=== PATIENT | female | born 1990 | race American Indian/Alaskan Native ===

== ENCOUNTER 2016-06-02 11:44 | Outpatient (CLI) | payer MEDICAID ==
[2016-06-02 14:57] VITALS: BP 121/67
--- NOTE | 2016-06-03 08:05 | Ultrasound Report ---
ULTRASOUND OB LIMITED History: well being Technique: Transabdominal ultrasound with Doppler interrogation. Gestation: Single Position: Breech Amniotic Fluid: Normal STACY = 18.6 cm Heart Rate: 15 BPM
== END 2016-06-02 17:15 | disposition home or self-care (01) ==
LOC: LAB 11:44 → TRG 13:59 → LAB 17:15
PROVIDERS: ATTEND Obstetrics & Gynecology
DX: O36.0120 Maternal care for anti-D [Rh] antibodies, second trimester, not applicable or unspecified (principal); O32.1XX0 Maternal care for breech presentation, not applicable or unspecified; Z91.81 History of falling; Z3A.26 26 weeks gestation of pregnancy
CPT/HCPCS: 59025; 76815; 85460; 86850; 86900; 86901; 96372; J2790

== ENCOUNTER 2016-06-12 22:18 | Outpatient (CLI) | payer MEDICAID ==
[2016-06-12] MEDS ORDERED: LACTATED RINGERS 500 ML IV ONE (22:26)
[2016-06-12 22:34] VITALS: BP 124/78
== END 2016-06-12 23:08 | disposition home or self-care (01) ==
LOC: TRG 22:18 → LD 22:19 → TRG 23:08
PROVIDERS: ATTEND Obstetrics & Gynecology
DX: O46.92 Antepartum hemorrhage, unspecified, second trimester (principal); Z3A.27 27 weeks gestation of pregnancy
CPT/HCPCS: 59025

== ENCOUNTER 2016-06-23 22:47 | Outpatient (CLI) | payer MEDICAID ==
[2016-06-24 00:07] VITALS: BP 121/77
== END 2016-06-24 00:36 | disposition home or self-care (01) ==
LOC: TRG 22:47
PROVIDERS: ATTEND Obstetrics & Gynecology
DX: O47.03 False labor before 37 completed weeks of gestation, third trimester (principal); Z3A.29 29 weeks gestation of pregnancy
CPT/HCPCS: 59025

== ENCOUNTER 2016-08-27 05:31 | Inpatient (IN) | payer MEDICAID ==
[2016-08-27] MEDS ORDERED: LACTATED RINGERS 1,000 ML ONE ×2 (05:52)
[2016-08-27] MEDS ORDERED: LACTATED RINGERS 1,000 ML IV SCH (07:00)
[2016-08-27 07:13] LABS: Basophils % (Auto) 0.3 % (0.0-1.8); Eosinophils % (Auto) 1.1 % (0.0-4.3); Hematocrit 35.2 % (30.3-42.9); Hemoglobin 11.8 gm/dl (10.1-14.3); Mean Corpuscular HGB Conc 34 % (30-34); Mean Corpuscular Hemoglobin 31 pg (28-32); Mean Corpuscular Volume 92 fl (79-97); Platelet Count 234 K/mm3 (140-440); Red Blood Count 3.83 M/mm3 (3.65-5.03); Red Cell Distribution Width 15.3 % (13.2-15.2); White Blood Count 9.2 K/mm3 (4.5-11.0)
[2016-08-27] MEDS ORDERED: REGLAN IV ONE (07:49)
[2016-08-27] MEDS ORDERED: PEPCID IV ONE (07:49)
[2016-08-27] MEDS ORDERED: BICITRA PO ONE (07:49)
[2016-08-27] MEDS ORDERED: PITOCin/NS 20 UNIT/1000ML DRIP 20 UNITS/1,000 ML BAG IV SCH ×2 (08:00→11:00)
[2016-08-27] MEDS ORDERED: ANCEF/STERILE WATER 2 GM/20 ML 2 GM/20 ML SYRINGE IV NR (08:00)
--- NOTE | 2016-08-27 08:59 | History and Physical Report ---
History of Present Illness Date of examination: 08/27/16 Date of admission: 08/27/16 08:19 Chief complaint: Ruptured Membranes History of present illness: 26-year-old at 38+2 wks presents with ruptured membranes, she is a [employer] patient and I currently have no records. course complicated by gestational diabetes on medication. 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 denies: chlamydia, fibroids, gonorrhea, hepatitis B, hepatitis C, HIV, syphilis, trichomonas Social history: single, full code. denies: smoking, alcohol abuse, prescription drug abuse, IV drug use - Obstetrical History Expected Date of Delivery: 09/08/16 Actual Gestation: 38 Week(s) 3 Day(s) : 5 Para: 1 Medications and Allergies Allergies Allergy/AdvReac Type Severity Reaction Status Date / Time No Known Allergies Allergy Verified 04/20/16 09:59 Home Medications Medication Instructions Recorded Confirmed Last Taken Type Vit-Fe Fumar-FA [ 1 tab PO QDAY 04/20/16 08/27/16 08/26/16 History Vitamin] Ibuprofen [Motrin 600 MG tab] 600 mg PO Q8H PRN #30 tablet 08/27/16 Unknown Rx Multivitamin with Iron 1 each PO DAILY #30 tablet 08/27/16 Unknown Rx [Multivitamins with Iron] oxyCODONE /ACETAMINOPHEN [Percocet 1 tab PO Q6HR PRN #30 tablet 08/27/16 Unknown Rx 5/325] Active Meds: Active Medications Lactated Ringer's (Lactated Ringers) 1,000 mls @ 125 mls/hr IV DIRECT MOIZ Cefazolin Sodium (Ancef/Sterile Water 2 Gm/20 Ml) 2 gm in 20 mls @ 80 mls/hr IV PREOP NR PRN Reason: Protocol Stop: 08/27/16 23:59 Oxytocin/Sodium Chloride (Pitocin/Ns 20 Unit/1000ml Drip) 20 units in 1,000 mls @ 0 mls/hr IV TITR MOIZ PRN Reason: As Directed Review of Systems Constitutional: no weight gain, no fever, no chills, no fatigue, no weakness, no chronic headaches Cardiovascular: no chest pain, no orthopnea, no palpitations, no edema, no syncope, no lightheadedness, no shortness of breath, no dyspnea on exertion, no high blood pressure Respiratory: no cough, no cough with sputum, no shortness of breath, no dyspnea on exertion Gastrointestinal: abdominal pain (painful contractions), no nausea, no vomiting Genitourinary: leakage of fluid, contractions, no vaginal bleeding - Vital Signs Vital signs: Vital Signs Temp Pulse Resp BP 98.3 F 77 18 137/86 08/27/16 05:37 08/27/16 05:37 08/27/16 05:37 08/27/16 05:37 Temp Pulse Resp BP Pulse Ox 98.5 F 79 18 137/86 100 08/27/16 07:03 08/27/16 07:18 08/27/16 07:03 08/27/16 07:03 08/27/16 07:18 - Physical Exam Cardiovascular: Regular rate, Normal S1, Normal S2 Lungs: Positive: Clear to auscultation, Normal air movement Abdomen: Positive: normal appearance, soft. Negative: distention, tenderness, guarding, rigidity Uterus: Positive: enlarged (EFW ~ 3600). Negative: tender Adnexa: both: normal Extremities: Positive: normal - Obstetrical FHR: category 1 Results Result Diagrams: 08/27/16 22:47 08/27/16 06:15 Abnormal lab results 08/27/16 Range/Units 06:15 RDW 15.3 H (13.2-15.2) % [place] % (Auto) 13.8 H (0.0-7.3) % [place] # 1.3 H (0.0-0.8) K/mm3 All other labs normal. Assessment and Plan A: 26-year-old at 38+2 with ruptured membranes -Prior C-S # 1 -GDMA 2 (Has not taken her meds in 2 days but her POC is ~70) P: -Will proceed with a second repeat -Patient has been consented - Patient Problems (1) 38 weeks gestation of Current Visit: Yes Status: Acute (2) Previous delivery, antepartum Current Visit: Yes Status: Acute (3) Gestational diabetes Current Visit: Yes Status: Acute Qualifiers: Gestational diabetes mellitus control: G Trimester: T
[2016-08-27] MEDS ORDERED: DILAUDID IV PRN (09:01)
[2016-08-27] MEDS ORDERED: PHENERGAN PR PRN (09:01)
[2016-08-27] MEDS ORDERED: BENADRYL IV PRN (09:01)
[2016-08-27] MEDS ORDERED: NARCAN 0.4 MG/1 ML IV PRN ×2 (09:01→10:55)
[2016-08-27] MEDS ORDERED: PHENERGAN PO PRN (09:01)
[2016-08-27] MEDS ORDERED: ZOFRAN IV PRN (09:01)
--- NOTE | 2016-08-27 09:01 | Anesthesia Day of Surgery ---
Anesthesia Day of Surgery - Day of Surgery Patient Examined: Yes Patient H&P Reviewed: Yes Patient is NPO: Yes
--- NOTE | 2016-08-27 09:01 | Anesthesia Consultation ---
Anesthesia Consult and Med Hx Date of service: 08/27/16 - Airway Anesthetic Teeth Evaluation: Good ROM Head & Neck: Adequate Mental/Hyoid Distance: Adequate Mallampati Class: Class II Intubation Access Assessment: Probably Good - Pre-Operative Health Status ASA Pre-Surgery Classification: ASA2 Proposed Anesthetic Plan: Epidural, Spinal - Pulmonary Hx Asthma: No COPD: No Hx Pneumonia: No - Cardiovascular System Hx Hypertension: No - Central Nervous System Hx Seizures: No Hx Psychiatric Problems: No - Endocrine Hx Renal Disease: No Hx End Stage Renal Disease: No Hx Hypothyroidism: No Hx Hyperthyroidism: No - Hematic Hx Anemia: No Hx Sickle Cell Disease: No - Other Systems Hx Alcohol Use: No
[2016-08-27] MEDS ORDERED: TORADOL IV PRN (09:02)
[2016-08-27] MEDS ORDERED: MORPHINE ONE (09:27)
[2016-08-27] MEDS ORDERED: SODIUM CHLORIDE FLUSH SYRINGE 10 ML IV NR ×2 (10:00→11:00)
[2016-08-27] MEDS ORDERED: XYLOCAINE MPF 2% ONE (10:13)
[2016-08-27] MEDS ORDERED: ZOFRAN ONE (10:24)
[2016-08-27] MEDS ORDERED: NEO SYNEPHRINE/NS Syringe(OR USE) IV ONE (10:30)
[2016-08-27] MEDS ORDERED: NACL 0.9% IR ONE (10:33)
[2016-08-27] MEDS ORDERED: WATER FOR IRRIG STERILE IR ONE (10:33)
--- NOTE | 2016-08-27 10:52 | Operative Report ---
Operative Report Operative Report: DATE: 08/27/2016 PREOPERATIVE DIAGNOSIS: 26-year-old at 38+2, spontaneous rupture of membranes, prior , GDMA2 POSTOP DIAGNOSIS: As above NAME OF PROCEDURE: Repeat low transverse section SURGEON: ZEINAB WHITE MD TRANSMISSION ENGINEER: [] ANESTHESIA: Combined spinal epidural EBL: 700 mL PATHOLOGY SPECIMEN: None URINE OUTPUT: 50 mL FINDINGS: Male infant in cephalic presentation, time of was 10:16 AM, Apgars were 8 and 9, 's weight was 7 [place] [address] grams, minimal adhesions, normal uterus tubes and ovaries bilaterally DESCRIPTION OF PROCEDURE: She was taken to the operating room where she was prepped and draped in a sterile fashion, she was placed in the dorsal supine position. Pfannenstiel incision was performed through her prior incisional scar which was carried through to underlying rectus fascia which was on the midline. The fascial incision was extended laterally with use of Mcneil scissors , the anterior leaf was then grasped with Kochers forceps elevated dissected sharply and bluntly off the underlying rectus in a similar fashion inferior leaf was grasped elevated dissected sharply and bluntly off the underlying rectus. The rectus was in the midline, good visualization of bladder was noted. A bladder blade was placed in the patient's pelvic cavity; bladder flap could not be created. A hysterotomy incision was then performed in the lower segment with clear amniotic fluid noted, hysterotomy incision was extended laterally with the use of fingers manually. in cephalic presentation was delivered in the usual manner; cord was clamped and cut infant was handed over to waiting nursery staff. The placenta was then delivered manually intact, the uterus was exteriorized cleared of all clots and debris. Hysterotomy incision was then closed in a running locked fashion with 0 Vicryl on a CTX; using the same suture was imbricate the initial layer. Interrupted [id number] stitches were used to obtain hemostasis. Uterus was then returned to the patient's pelvic cavity; peritoneal edges were grasped with hemostats and Dionne's elevated copiously irrigation was used to clear the gutters of all clots and debris. Tercel hemostatic agent was then applied to the hysterotomy incision as a means to prevent future bleeding. The peritoneal layer was then closed in a running fashion with 3-0 Vicryl and the rectus was reapproximated with a single [id number] stitch. The fascia was closed in a running fashion with 0 Vicryl and tied in the opposite side. The subcutaneous layer was irrigated and then reapproximated with interrupted figure -of-eight stitches. The skin was closed in a subcuticular manner with 4-0 Vicryl. She tolerated the procedure well lap and instrument counts were correct 2 she did receive 2 g of Ancef prior to incision she is transferred to PACU in stable condition thank you.
[2016-08-27] MEDS ORDERED: SENOKOT PO PRN (10:55)
[2016-08-27] MEDS ORDERED: ANUCORT-HC PR PRN (10:55)
[2016-08-27] MEDS ORDERED: TYLENOL PO PRN (10:55)
[2016-08-27] MEDS ORDERED: MILK OF MAGNESIA PO PRN (10:55)
[2016-08-27] MEDS ORDERED: MYLICON PO PRN (10:55)
[2016-08-27] MEDS ORDERED: TUCKS PAD TP PRN (10:55)
[2016-08-27] MEDS ORDERED: LANSINOH TP PRN (10:55)
[2016-08-27] MEDS ORDERED: D5LR 1,000 ML IV SCH (11:00)
[2016-08-27] MEDS: BENADRYL PO PRN ×2 (17:42→23:39)
[2016-08-27] MEDS: PERCOCET 5/325 PO PRN (22:06)
[2016-08-27 23:13] LABS: Hemoglobin 10.7 gm/dl (10.1-14.3)
[2016-08-28] MEDS: MOTRIN PO PRN ×4 (03:02→22:51)
[2016-08-28] MEDS: PERCOCET 5/325 PO PRN ×4 (05:17→22:51)
[2016-08-28] MEDS ORDERED: BOOSTRIX IM ONE (06:00)
--- NOTE | 2016-08-28 09:59 | Progress Note ---
Subjective Date of service: 08/28/16 Interval history: 1st POD after Patient is in the bed, comfortable. Pain is well under control. Some pruritus is controlled with Benadryl. Ambulated well. No residual neurological deficit. No anesthesia complications Objective - Constitutional Vitals: Vital Signs - 12hr 08/27/16 08/28/16 08/28/16 22:30 00:00 04:00 Temperature 98.7 F 98.0 F 98.8 F Pulse Rate [ 82 93 H Left Brachial] Pulse Rate [ 71 Right Brachial] Pulse Rate [ Right From Monitor] Respiratory 18 20 20 Rate Blood Pressure 132/72 138/74 [Left Arm] Blood Pressure 133/65 [Right Arm] 08/28/16 08:10 Temperature 98.5 F Pulse Rate [ 98 H Left Brachial] Pulse Rate [ 90 Right Brachial] Pulse Rate [ 98 H Right From Monitor] Respiratory 17 Rate Blood Pressure 136/78 [Left Arm] Blood Pressure 137/77 [Right Arm] - Labs CBC & Chem 7: 08/27/16 22:47 08/27/16 06:15 Labs: Abnormal lab results 08/28/16 Range/Units 06:36 POC Glucose 137 H (70-105)
[2016-08-28] MEDS: PRENATAL VITAMIN PO SCH (11:08)
[2016-08-28] MEDS: FEOSOL PO SCH (11:08)
--- NOTE | 2016-08-28 14:53 | Progress Note ---
Assessment and Plan A: POD1 VSS Incision dressing dry and intact Ambulating well P: Continue post op care Encouraged continued ambulation Subjective - Subjective Date of service: 08/28/16 Principal diagnosis: POD1 Interval history: 26 yo G5 s/p repeat LTCS on 08/26 @ 1016. Hx of GDM in this . Patient reports: appetite normal, voiding normally, flatus, ambulating normally [place]: doing well Objective - Vital Signs Latest vital signs: Vital Signs Temp Pulse Pulse Pulse Resp BP BP 08/28/16 08:10 98.5 F 98 H 90 98 H 17 136/78 137/77 08/28/16 04:00 98.8 F 93 H 20 138/74 08/28/16 00:00 98.0 F 82 20 132/72 08/27/16 22:30 98.7 F 71 18 133/65 08/27/16 16:20 98.2 F 85 20 129/67 Intake and Output 08/27/16 08/28/16 08/28/16 22:59 06:59 14:59 Intake Total 480 1000 Output Total 829 080 5085 Balance -370 -900 -700 Intake: Oral 480 1000 Output: Urine 149 006 7065 Indwelling Catheter 850 Void 900 1700 Other: Total, Intake Amount 240 1000 Total, Output Amount 293 948 9411 # Voids 1 Void 3 - Exam Cardiovascular: Present: Regular rate Lungs: Present: Normal air movement Vulva: both: normal (scant lochia) Uterus: Present: fundal height below umbilicus Incision: Present: dry, dressed - Labs Labs: Abnormal lab results 08/28/16 Range/Units 06:36 POC Glucose 137 H (70-105) - Allied health notes Allied health notes reviewed: nursing
[2016-08-29] MEDS: MOTRIN PO PRN ×2 (05:14→10:44)
[2016-08-29] MEDS: PRENATAL VITAMIN PO SCH (10:43)
[2016-08-29] MEDS: PERCOCET 5/325 PO PRN (10:43)
[2016-08-29] MEDS: FEOSOL PO SCH (10:43)
--- NOTE | 2016-08-29 12:02 | Progress Note ---
Assessment and Plan A: POD # 2 -stable P: Discharge home today. Subjective - Subjective Date of service: 08/29/16 Principal diagnosis: repeat Patient reports: appetite normal : doing well Objective - Vital Signs Latest vital signs: Vital Signs Temp Pulse Pulse Pulse Resp BP BP 08/29/16 07:58 98.2 F 86 18 124/66 08/29/16 00:00 98.3 F 98 H 18 144/86 08/28/16 16:15 98.1 F 97 H 97 H 97 H 18 131/76 137/81 08/28/16 12:10 98.1 F 69 69 70 17 158/74 155/69 Intake and Output 08/28/16 08/29/16 08/29/16 22:59 06:59 14:59 Intake Total 360 120 Balance 360 120 Intake: Oral 360 120 Other: Total, Intake Amount 360 120 # Voids Void 3 2 1 - Exam Breasts: Present: deferred Cardiovascular: Present: Regular rate Lungs: Present: Clear to auscultation Abdomen: Present: soft Uterus: Present: fundal height below umbilicus Extremities: Present: normal Deep Tendon Reflex Grade: Normal +2
--- NOTE | 2016-08-29 12:11 | Discharge Summary ---
Providers - Providers Date of Admission: 08/27/16 08:19 Date of discharge: 08/29/16 Attending physician: KARIN GU MD Primary care physician: KARIN GU MD Hospitalization Reason for admission: active labor Delivery: Procedure: section Incision: intact complications: none Discharge diagnosis: IUP at term delivered [place] baby: male Condition at discharge: Good Disposition: DC-01 TO HOME OR SELFCARE Plan - Discharge Medications Prescriptions: Ibuprofen [Motrin 600 MG tab] 600 mg PO Q8H PRN #30 tablet PRN Reason: Pain Multivitamin with Iron [Multivitamins with Iron] 1 each PO DAILY #30 tablet oxyCODONE /ACETAMINOPHEN [Percocet 5/325] 1 tab PO Q6HR PRN #30 tablet PRN Reason: Pain - Provider Discharge Summary Activity: routine, no sex for 6 weeks, no heavy lifting 4 weeks, no strenuous exercise Diet: routine Instructions: routine Additional instructions: [] Smoking cessation referral if applicable(refer to patient education folder for contact #) [] Refer to [facility]'s [facility] Booklet Call your doctor immediately for: * Fever > 100.5 * Heavy vaginal bleeding ( >1 pad per hour) * Severe persistent headache * Shortness of breath * Reddened, hot, painful area to leg or breast * Drainage or odor from incision. * Keep incision clean and dry at all times and follow doctor's instructions regarding bathing/showering - Follow up plan Follow up: [facility] [Provider Group] - 6 Weeks
[2016-08-29 17:27] VITALS: BP 122/78
== END 2016-08-29 18:00 | disposition home or self-care (01) | DRG 766 ==
LOC: TRG 05:31 → APU 08:19 → OB 12:56
PROVIDERS: ADMIT Obstetrics & Gynecology; ATTEND Obstetrics & Gynecology
PROC: 10D00Z1 Extraction of Products of Conception, Low, Open Approach (ICD-10-PCS; principal; 2016-08-27)
PROC: 3E0334Z Introduction of Serum, Toxoid and Vaccine into Peripheral Vein, Percutaneous Approach (ICD-10-PCS; 2016-08-27)
DX: O24.429 Gestational diabetes mellitus in childbirth, unspecified control (principal); O34.211 Maternal care for low transverse scar from previous cesarean delivery; Z3A.38 38 weeks gestation of pregnancy; Z37.0 Single live birth
CPT/HCPCS: 36415; 82947; 82962; 85014; 85018; 85025; 85461; 86850; 86900; 86901; 90471; 90715; 99211; A6250; C9250; G0463; J0690; J1885; J2270; J2370; J2405; J2590; J2765; J2790; J7120; J7121